=== PATIENT | female | born 1960 | race Caucasian/White ===

== ENCOUNTER → 2019-03-21 | Outpatient (CLI) | payer BC ==
[~2019-03-21] MED LIST: None per pt
[2019-03-21 14:50] LABS: BASOPHILS # (AUTO) 0.03 x10^3/uL (0-0.1); BASOPHILS % (AUTO) 1 % (0-1); EOSINOPHILS # (AUTO) 0.23 x10^3/uL (0-0.4); EOSINOPHILS % (AUTO) 4 % (1-7); LYMPHOCYTES # (AUTO) 1.66 x10^3/uL (1-3.4); LYMPHOCYTES % (AUTO) 30 % (22-44); MD NO; MEAN CORPUSCULAR HEMOGLOBIN 33.8 pg (27.0-34.8); MEAN CORPUSCULAR HGB CONC 33.7 g/dL (32.4-35.8); MEAN CORPUSCULAR VOLUME 100.4 fL (80-100); MEAN PLATELET VOLUME 7.5 fL (7.4-10.4); MONOCYTES # (AUTO) 0.37 x10^3/uL (0.2-0.8); MONOCYTES % (AUTO) 7 % (2-9); NEUTROPHILS # (AUTO) 3.23 x10^3/uL (1.8-6.8); NEUTROPHILS % (AUTO) 58 % (42-75); PLATELET COUNT 211 x10^3/uL (130-400); RED BLOOD COUNT 4.12 x10^6/uL (3.82-5.3); RED CELL DISTRIBUTION WIDTH 12.9 % (9.6-15.2)
[2019-03-21 14:58] LABS: ANION GAP 4 mmol/L (5-15); CALCIUM 8.7 mg/dL (8.5-10.1); CHLORIDE 110 mmol/L (98-107); CREATININE 0.86 mg/dL (0.55-1.02)
[2019-03-21 15:10] LABS: HEMOGLOBIN A1C 5.1 % (4.2-6.3)
[2019-03-21 15:42] LABS: INTERNATIONAL NORMALIZED RATIO 0.95 (0.93-1.1)
== END | disposition home or self-care (01) ==
LOC: STAR 14:09
PROVIDERS: ATTEND Orthopaedic Surgery
DX: Z01.818 Encounter for other preprocedural examination (principal); I45.10 Unspecified right bundle-branch block; M17.11 Unilateral primary osteoarthritis, right knee
CPT/HCPCS: 36415; 80048; 83036; 85025; 85610; 85730; 87081; 87806; 93005; G0475

== ENCOUNTER 2019-03-27 08:26 | Observation (INO) | payer BC ==
[~2019-03-27] VITALS: Ht 172.7 cm; Wt 75.4 kg
[~2019-03-27 08:26] MED LIST changes: +EPINEPHRINE 1 MG/ML, 1ML ONE; +KETOROLAC 60 MG/2 ML ONE; +ROPIvacaine/PF 0.2%, 20 ML ONE; +SODIUM CHLORIDE 0.9% 50 ML ONE; +TRANEXAMIC ACID 100 MG/ML, 10ML ONE
[2019-03-27] MEDS ORDERED: TRANEXAMIC ACID 100 MG/ML, 10ML ONE (09:30)
[2019-03-27] MEDS ORDERED: LACTATED RINGERS 1,000 ML IV SCH (09:31)
[2019-03-27 09:49] VITALS: BP 131/82
[2019-03-27] MEDS ORDERED: GABAPENTIN 300 MG CAPSULE PO ONE (10:00)
[2019-03-27] MEDS ORDERED: ACETAMINOPHEN 500 MG TABLET PO ONE (10:00)
[2019-03-27] MEDS: POTASSIUM CHLORIDE 20 MEQ in D5%-0.45% NACL 1,000 ML IV SCH ×2 (10:19→15:16)
[2019-03-27] MEDS ORDERED: SENNA/DOCUSATE TABLET PO PRN (10:30)
[2019-03-27] MEDS: KETOROLAC 30 MG/1 ML IV SCH ×2 (10:30→18:24)
[2019-03-27] MEDS ORDERED: ALUMINUM/MAG/SIMETHICONE 30 ML UDC PO PRN (10:30)
[2019-03-27] MEDS ORDERED: PSYLLIUM PACKET PO PRN (10:30)
[2019-03-27] MEDS ORDERED: MAGNESIUM HYDROXIDE 8%, 30ML UDC PO PRN (10:30)
[2019-03-27] MEDS ORDERED: ACETAMINOPHEN 650 MG/20.3 ML UDC PO PRN (10:30)
[2019-03-27] MEDS ORDERED: PROMETHAZINE 25 MG/ML, 1ML IM PRN (10:30)
[2019-03-27] MEDS ORDERED: HYDROmorphone 2 MG/ML, 1ML IVPush PRN ×2 (10:30→13:00)
[2019-03-27] MEDS ORDERED: ONDANSETRON 4 MG TABLET PO PRN (10:30)
[2019-03-27] MEDS ORDERED: POLYETHYLENE GLYCOL 17 GM PACKET PO PRN (10:30)
[2019-03-27] MEDS ORDERED: ONDANSETRON 2MG/ML, 2ML IV PRN ×2 (10:30→13:00)
[2019-03-27] MEDS ORDERED: DIPHENHYDRAMINE 50 MG/ML, 1ML IVPush PRN (10:30)
[2019-03-27] MEDS ORDERED: DIPHENHYDRAMINE 50 MG CAPSULE PO PRN (10:30)
[2019-03-27] MEDS ORDERED: MIDAZOLAM 1 MG/ML, 2ML ONE (10:52)
[2019-03-27] MEDS ORDERED: FENTANYL PF 250 MCG/5ML ONE (10:52)
[2019-03-27] MEDS ORDERED: BUPIVACAINE/PF 0.25% ONE (12:52)
[2019-03-27] MEDS ORDERED: LIDOCAINE-MPF 2% ,5ML ONE ×3 (12:52)
[2019-03-27] MEDS ORDERED: CEFAZOLIN 1,000 MG ONE (12:54)
[2019-03-27] MEDS ORDERED: DEXAMETHASONE 4 MG/ML, 1ML ONE (12:54)
[2019-03-27] MEDS ORDERED: PROPOFOL 10 MG/ML, 20ML ONE (12:54)
[2019-03-27] MEDS ORDERED: ONDANSETRON 2MG/ML, 2ML ONE (12:54)
[2019-03-27] MEDS ORDERED: hydrALAzine 20 MG/ML, 1ML IV PRN (13:00)
[2019-03-27] MEDS ORDERED: MEPERIDINE/PF 25MG/0.5ML IVPush PRN (13:00)
[2019-03-27] MEDS ORDERED: SCOPOLAMINE PATCH, 1.5MG PATCH.TD72 TD PRN (13:00)
[2019-03-27] MEDS ORDERED: METOPROLOL 1 MG/ML, 5ML IV PRN (13:00)
[2019-03-27] MEDS ORDERED: ALBUTEROL/IPRATROPIUM 2.5MG/0.5MG, 3 ML NPPB PRN (13:00)
[2019-03-27] MEDS ORDERED: PROMETHAZINE 25 MG/ML, 1ML IV PRN (13:00)
[2019-03-27] MEDS ORDERED: OXYcodone 5 MG/5 ML ORAL.SOL UDC PO PRN (13:00)
[2019-03-27] MEDS ORDERED: MIDAZOLAM 1 MG/ML, 2ML IV PRN (13:00)
[2019-03-27] MEDS ORDERED: FENTANYL PF 100 MCG/2ML ONE (13:34)
[2019-03-27] MEDS ORDERED: OXYcodone 5 MG/5 ML ORAL.SOL UDC ONE (13:35)
[2019-03-27] MEDS: FENTANYL PF 100 MCG/2ML IV PRN ×2 (13:39→13:51)
[2019-03-27] MEDS ORDERED: TRANEXAMIC ACID 1,000 MG in SODIUM CHLORIDE 0.9% 100 ML IVPB ONE (13:40)
[2019-03-27] MEDS ORDERED: HYDROmorphone 2 MG/ML, 1ML ONE (14:00)
[2019-03-27] MEDS: ASPIRIN 81 MG TABLET EC PO SCH ×2 (17:56→21:00)
[2019-03-27 18:38] VITALS: BP 104/53
[2019-03-27] MEDS: DOCUSATE 100 MG CAPSULE PO SCH (19:35)
[2019-03-27] MEDS: CEFAZOLIN PMX 1GM/50ML 50 ML IVPB SCH (19:35)
[2019-03-27] MEDS: OXYcodone IR 5MG TABLET PO PRN ×2 (19:42→20:28)
[2019-03-28 00:06] VITALS: BP 111/55
[2019-03-28] MEDS: OXYcodone IR 5MG TABLET PO PRN ×3 (00:29→08:14)
[2019-03-28] MEDS: KETOROLAC 30 MG/1 ML IV SCH (02:30)
[2019-03-28] MEDS: CEFAZOLIN PMX 1GM/50ML 50 ML IVPB SCH (02:57)
[2019-03-28 03:36] VITALS: BP 112/58
[2019-03-28] MEDS ORDERED: DEXAMETHASONE 4 MG/ML, 1ML IVPush ONE (06:00)
[2019-03-28] MEDS: POTASSIUM CHLORIDE 20 MEQ in D5%-0.45% NACL 1,000 ML IV SCH (06:10)
[2019-03-28] MEDS: ASPIRIN 81 MG TABLET EC PO SCH (08:13)
[2019-03-28] MEDS: DOCUSATE 100 MG CAPSULE PO SCH (08:13)
[2019-03-28 08:17] VITALS: BP 137/75
[2019-03-28] MEDS ORDERED: TAMSULOSIN 0.4 MG CAP.ER.24H PO SCH (09:00)
== END 2019-03-28 11:05 | disposition home or self-care (01) ==
LOC: OUT 08:26 → ORIP 10:19 → 4NOR 14:25 → DCLOUNGE 03-28 10:47
PROVIDERS: ADMIT Orthopaedic Surgery; ATTEND Orthopaedic Surgery
DX: M17.11 Unilateral primary osteoarthritis, right knee (principal); Z79.82 Long term (current) use of aspirin; Z79.899 Other long term (current) drug therapy
CPT/HCPCS: 27447; 36415; 73560; 85014; 85018; 96365; 96366; 96375; 96376; 97110; 97161; C1713; C1776; G0378; J0171; J0690; J1100; J1170; J1885; J2250; J2405; J2704; J2795; J3010; J3480; J3490